=== PATIENT | male | born 1950 | race Caucasian/White ===

== ENCOUNTER → 2017-09-17 | Outpatient (CLI) | payer MEDICARE, OTHER ==
[2015-09-04 10:00] VITALS: BP 150/87
[~2017-09-17] MED LIST: ALLEGRA180 MG PO; ASPIRIN E.C. 8181 M1 PO; CIALIS20 MG PO; FLONASE0.05 MG/AC NS; IBUPROFEN800 MG PO; LOVASTATIN40 MG PO; PRILOSEC 20MG20 MG PO
[2017-09-17 08:50] LABS: HEMOGLOBIN 12.4 g/dL (13.5-18.0); MEAN CELL VOLUME 85 fl (78-100); MEAN CORPUSCULAR HEMOGLOBIN 27 pg (27-31); MEAN CORPUSCULAR HGB CONC 32 g/dL (33-37); MEAN PLATELET VOLUME 10.3 fl (7.4-10.4); PLATELET COUNT 225 K/mm3 (130-400); RED CELL DISTRIBUTION WIDTH 14.9 % (11.5-14.5); WHITE BLOOD COUNT 4.7 K/mm3 (4.8-10.8)
[2017-09-17 08:56] LABS: ALBUMIN 4.2 g/dL (3.5-5.0); BUN/CREATININE RATIO 21.4 (6.0-26.0); CALCIUM 9.4 mg/dL (8.4-10.2); POTASSIUM 3.9 mmol/L (3.6-5.0); TOTAL BILIRUBIN 0.7 mg/dL (0.2-1.3); TOTAL PROTEIN 7.3 g/dL (6.3-8.2)
[2017-09-17 10:07] LABS: ERYTHROCYTE SEDIMENTATION RATE 3 mm/hr (0-20)
[2017-09-17 11:14] LABS: URINE APPEARANCE CLEAR; URINE BILIRUBIN NEGATIVE (NEGATIVE); URINE BLOOD NEGATIVE (NEGATIVE); URINE COLOR YELLOW; URINE GLUCOSE NEGATIVE (NEGATIVE); URINE KETONE NEGATIVE (NEGATIVE); URINE LEUKOCYTE ESTERASE NEGATIVE (NEGATIVE); URINE MUCUS PRESENT (NOT PRESENT); URINE NITRATE NEGATIVE (NEGATIVE); URINE PROTEIN(semi-quant) TRACE mg/dL (NEGATIVE); URINE UROBILINOGEN NORMAL (NORMAL); URINE WBC 0-1 /hpf (0-3)
[2017-09-18 00:11] LABS: TESTOSTERONE 764 ng/dL (221-716)
== END ==
LOC: LAB 08:20
PROVIDERS: Internal Medicine
DX: G43.709 Chronic migraine without aura, not intractable, without status migrainosus (principal); Z12.5 Encounter for screening for malignant neoplasm of prostate; E78.5 Hyperlipidemia, unspecified; N52.9 Male erectile dysfunction, unspecified; Z12.11 Encounter for screening for malignant neoplasm of colon; E53.8 Deficiency of other specified B group vitamins; Z88.0 Allergy status to penicillin

== ENCOUNTER → 2018-10-21 | Outpatient (CLI) | payer MEDICARE, OTHER ==
[2015-09-04 10:00] VITALS: BP 150/87
[2018-10-21 11:49] LABS: EOS # 0.3 (0.04-0.40); LYMPH# 1.2 (1.50-4.00); MEAN CELL VOLUME 86 fl (78-100); MEAN CORPUSCULAR HEMOGLOBIN 28 pg (27-31); MEAN CORPUSCULAR HGB CONC 32 g/dL (33-37); MEAN PLATELET VOLUME 9.2 fl (7.4-10.4); MONO # 0.4 (0.20-0.80); NEU # 2.8 (1.40-6.50); PLATELET COUNT 284 K/mm3 (130-400); RED BLOOD COUNT 4.29 M/mm3 (4.20-5.60); RED CELL DISTRIBUTION WIDTH 14.4 % (11.5-14.5); WHITE BLOOD COUNT 4.8 K/mm3 (4.8-10.8)
[2018-10-21 11:58] LABS: EOS % 6.7 % (0.0-4.0)
[2018-10-21 12:02] LABS: ALBUMIN 4.2 g/dL (3.5-5.0); POTASSIUM 3.7 mmol/L (3.6-5.0); TOTAL BILIRUBIN 0.4 mg/dL (0.2-1.3); TOTAL PROTEIN 7.1 g/dL (6.3-8.2)
[2018-10-21 12:42] LABS: URINE APPEARANCE CLEAR; URINE COLOR YELLOW
[2018-10-21 12:43] LABS: URINE BILIRUBIN NEGATIVE (NEGATIVE); URINE BLOOD NEGATIVE (NEGATIVE); URINE GLUCOSE NEGATIVE (NEGATIVE); URINE KETONE NEGATIVE (NEGATIVE); URINE LEUKOCYTE ESTERASE NEGATIVE (NEGATIVE); URINE NITRATE NEGATIVE (NEGATIVE); URINE PROTEIN(semi-quant) TRACE mg/dL (NEGATIVE); URINE UROBILINOGEN NORMAL (NORMAL); URINE WBC 0-1 /hpf (0-3)
[2018-10-21 12:56] LABS: ERYTHROCYTE SEDIMENTATION RATE 7 mm/hr (0-20)
[2018-10-22 04:13] LABS: TESTOSTERONE 681 ng/dL (221-716)
== END ==
LOC: LAB 11:36
PROVIDERS: Internal Medicine
DX: Z12.5 Encounter for screening for malignant neoplasm of prostate (principal); Z12.11 Encounter for screening for malignant neoplasm of colon; G43.909 Migraine, unspecified, not intractable, without status migrainosus; E53.8 Deficiency of other specified B group vitamins; N52.9 Male erectile dysfunction, unspecified; E78.5 Hyperlipidemia, unspecified

== ENCOUNTER → 2018-10-29 | Outpatient (CLI) | payer MEDICARE, OTHER ==
[2015-09-04 10:00] VITALS: BP 150/87
== END ==
LOC: RAD 09:35
DX: M50.321 Other cervical disc degeneration at C4-C5 level (principal)

== ENCOUNTER → 2018-11-02 | Outpatient (CLI) | payer MEDICARE, OTHER ==
[2015-09-04 10:00] VITALS: BP 150/87
== END ==
LOC: RAD 12:06
DX: M47.812 Spondylosis without myelopathy or radiculopathy, cervical region (principal); M48.02 Spinal stenosis, cervical region; M50.221 Other cervical disc displacement at C4-C5 level

== ENCOUNTER → 2019-10-22 | Outpatient (CLI) | payer MEDICARE, OTHER ==
[2015-09-04 10:00] VITALS: BP 150/87
[2019-10-22 09:20] LABS: HEMATOCRIT 36.2 % (42.0-52.0); HEMOGLOBIN 11.5 g/dL (13.5-18.0); MEAN CELL VOLUME 85 fl (78-100); MEAN CORPUSCULAR HEMOGLOBIN 27 pg (27-31); MEAN CORPUSCULAR HGB CONC 32 g/dL (33-37); PLATELET COUNT 244 K/mm3 (130-400); RED BLOOD COUNT 4.25 M/mm3 (4.20-5.60); RED CELL DISTRIBUTION WIDTH 15.4 % (11.5-14.5)
[2019-10-22 09:24] LABS: ALBUMIN 4.1 g/dL (3.4-4.8); POTASSIUM 4.6 mmol/L (3.5-5.1)
[2019-10-22 09:25] LABS: CALCIUM 9.2 mg/dL (8.3-10.5)
[2019-10-22 09:26] LABS: URINE APPEARANCE CLEAR; URINE BILIRUBIN NEGATIVE (NEGATIVE); URINE BLOOD NEGATIVE (NEGATIVE); URINE COLOR YELLOW; URINE GLUCOSE NEGATIVE (NEGATIVE); URINE KETONE NEGATIVE (NEGATIVE); URINE LEUKOCYTE ESTERASE NEGATIVE (NEGATIVE); URINE NITRATE NEGATIVE (NEGATIVE); URINE PROTEIN(semi-quant) 1+ mg/dL (NEGATIVE); URINE UROBILINOGEN NORMAL (NORMAL); URINE WBC 0-1 /hpf (0-3)
[2019-10-22 09:27] LABS: TOTAL PROTEIN 6.6 g/dL (6.2-8.1)
[2019-10-22 09:29] LABS: TOTAL BILIRUBIN 0.5 mg/dL (0.2-1.2)
[2019-10-22 09:52] LABS: LYMPHOCYTE 21 % (20-51); MONOCYTE 17 % (3-10); NEUTROPHILS 53 % (42-75); OVALOCYTES 1+
[2019-10-22 23:08] LABS: TESTOSTERONE 632 ng/dL (221-716)
[2019-10-25 13:27] LABS: ERYTHROCYTE SEDIMENTATION RATE 7 mm/hr (0-20)
== END ==
LOC: LAB 08:43
PROVIDERS: Internal Medicine
DX: Z12.5 Encounter for screening for malignant neoplasm of prostate (principal); Z12.11 Encounter for screening for malignant neoplasm of colon; N52.03 Combined arterial insufficiency and corporo-venous occlusive erectile dysfunction; G43.709 Chronic migraine without aura, not intractable, without status migrainosus; E78.2 Mixed hyperlipidemia; E53.8 Deficiency of other specified B group vitamins

== ENCOUNTER → 2020-10-23 | Outpatient (CLI) | payer MEDICARE, OTHER ==
[2015-09-04 10:00] VITALS: BP 150/87
[2020-10-23 09:57] LABS: POTASSIUM 4.4 mmol/L (3.5-5.1)
[2020-10-23 09:59] LABS: CALCIUM 8.7 mg/dL (8.3-10.5)
[2020-10-23 10:00] LABS: TOTAL PROTEIN 6.7 g/dL (6.2-8.1)
[2020-10-23 10:02] LABS: TOTAL BILIRUBIN 0.5 mg/dL (0.2-1.2)
[2020-10-23 11:10] LABS: HEMATOCRIT 36.7 % (42.0-52.0); HEMOGLOBIN 11.3 g/dL (13.5-18.0); MEAN CELL VOLUME 88 fl (78-100); MEAN CORPUSCULAR HEMOGLOBIN 27 pg (27-31); MEAN CORPUSCULAR HGB CONC 31 g/dL (33-37); MEAN PLATELET VOLUME 10.5 fl (7.4-10.4); PLATELET COUNT 212 K/mm3 (130-400); RED BLOOD COUNT 4.16 M/mm3 (4.20-5.60); RED CELL DISTRIBUTION WIDTH 15.2 % (11.5-14.5); WHITE BLOOD COUNT 5.3 K/mm3 (4.8-10.8)
[2020-10-23 12:06] LABS: ERYTHROCYTE SEDIMENTATION RATE 4 mm/hr (0-20); LYMPHOCYTE 39 % (20-51); MONOCYTE 12 % (3-10); NEUTROPHILS 45 % (42-75); OVALOCYTES 2+
== END ==
LOC: LAB 09:21
PROVIDERS: Internal Medicine
DX: Z12.5 Encounter for screening for malignant neoplasm of prostate (principal); E78.2 Mixed hyperlipidemia; K90.9 Intestinal malabsorption, unspecified; G43.009 Migraine without aura, not intractable, without status migrainosus

== ENCOUNTER → 2020-10-26 | Outpatient (CLI) | payer MEDICARE, OTHER ==
[2015-09-04 10:00] VITALS: BP 150/87
== END ==
LOC: LAB 12:13
DX: Z12.11 Encounter for screening for malignant neoplasm of colon (principal)

== ENCOUNTER → 2021-11-02 | Outpatient (CLI) | payer MEDICARE, OTHER ==
[2021-11-02 09:01] LABS: BASO # 0.04 K/mm3 (0.02-0.10); EOS # 0.35 K/mm3 (0.04-0.40); EOS % 6.6 % (0.0-4.0); HEMATOCRIT 39.3 % (42.0-52.0); HEMOGLOBIN 12.4 g/dL (13.5-18.0); MEAN CELL VOLUME 89 fl (78-100); MEAN CORPUSCULAR HEMOGLOBIN 28 pg (27-31); MEAN CORPUSCULAR HGB CONC 32 g/dL (33-37); MEAN PLATELET VOLUME 9.9 fl (7.4-10.4); MONO # 0.71 K/mm3 (0.20-0.80); NEU # 2.67 K/mm3 (1.40-6.50); PLATELET COUNT 236 K/mm3 (130-400); RED BLOOD COUNT 4.43 M/mm3 (4.20-5.60); RED CELL DISTRIBUTION WIDTH 14.4 % (11.5-14.5); WHITE BLOOD COUNT 5.3 K/mm3 (4.8-10.8)
[2021-11-02 09:05] LABS: ALBUMIN 4.1 g/dL (3.4-4.8); POTASSIUM 4.4 mmol/L (3.5-5.1)
[2021-11-02 09:06] LABS: CALCIUM 9.3 mg/dL (8.3-10.5)
[2021-11-02 09:08] LABS: TOTAL PROTEIN 6.9 g/dL (6.2-8.1)
[2021-11-02 09:10] LABS: TOTAL BILIRUBIN 0.4 mg/dL (0.2-1.2)
[2021-11-02 10:39] LABS: ERYTHROCYTE SEDIMENTATION RATE 6 mm/hr (0-20)
== END ==
LOC: LAB 08:16
PROVIDERS: Internal Medicine
DX: Z12.11 Encounter for screening for malignant neoplasm of colon (principal); Z12.5 Encounter for screening for malignant neoplasm of prostate; E78.2 Mixed hyperlipidemia; K90.9 Intestinal malabsorption, unspecified

== ENCOUNTER → 2021-11-15 | Outpatient (CLI) | payer MEDICARE, OTHER | LOC: LAB 09:56 | DX: Z12.11 Encounter for screening for malignant neoplasm of colon (principal); Z23 Encounter for immunization; Z12.5 Encounter for screening for malignant neoplasm of prostate; M47.812 Spondylosis without myelopathy or radiculopathy, cervical region; E53.8 Deficiency of other specified B group vitamins; K21.9 Gastro-esophageal reflux disease without esophagitis; K90.9 Intestinal malabsorption, unspecified; E78.2 Mixed hyperlipidemia; I34.0 Nonrheumatic mitral (valve) insufficiency; M17.9 Osteoarthritis of knee, unspecified; N52.9 Male erectile dysfunction, unspecified; Z83.49 Family history of other endocrine, nutritional and metabolic diseases ==

== ENCOUNTER → 2021-11-23 | Outpatient (CLI) | payer MEDICARE, OTHER | LOC: RAD 07:41 | DX: D71 Functional disorders of polymorphonuclear neutrophils (principal); E88.01 Alpha-1-antitrypsin deficiency; R91.8 Other nonspecific abnormal finding of lung field; K80.20 Calculus of gallbladder without cholecystitis without obstruction; K44.9 Diaphragmatic hernia without obstruction or gangrene | CPT/HCPCS: Q9967 ==

== ENCOUNTER → 2022-12-18 | Outpatient (CLI) | payer MEDICARE, OTHER ==
[2022-12-18 07:59] LABS: BASO # 0.03 K/mm3 (0.02-0.10); EOS # 0.43 K/mm3 (0.04-0.40); EOS % 8.5 % (0.0-4.0); HEMATOCRIT 42.1 % (42.0-52.0); HEMOGLOBIN 13.6 g/dL (13.5-18.0); LYMPH# 1.45 K/mm3 (1.50-4.00); MEAN CELL VOLUME 89 fl (78-100); MEAN CORPUSCULAR HEMOGLOBIN 29 pg (27-31); MEAN CORPUSCULAR HGB CONC 32 g/dL (33-37); MEAN PLATELET VOLUME 9.6 fl (7.4-10.4); NEU # 2.55 K/mm3 (1.40-6.50); PLATELET COUNT 200 K/mm3 (130-400); RED BLOOD COUNT 4.73 M/mm3 (4.20-5.60); RED CELL DISTRIBUTION WIDTH 13.9 % (11.5-14.5); WHITE BLOOD COUNT 5.1 K/mm3 (4.8-10.8)
[2022-12-18 08:04] LABS: ALBUMIN 4.2 g/dL (3.4-4.8); POTASSIUM 4.5 mmol/L (3.5-5.1)
[2022-12-18 08:05] LABS: CALCIUM 9.2 mg/dL (8.3-10.5)
[2022-12-18 08:06] LABS: TOTAL PROTEIN 6.7 g/dL (6.2-8.1)
[2022-12-18 08:08] LABS: TOTAL BILIRUBIN 0.4 mg/dL (0.2-1.2)
[2022-12-18 08:14] LABS: MAGNESIUM 2.04 mg/dL (1.60-2.60)
[2022-12-18 09:02] LABS: ERYTHROCYTE SEDIMENTATION RATE 3 mm/hr (0-20)
== END ==
LOC: LAB 07:43
PROVIDERS: Internal Medicine
DX: Z12.5 Encounter for screening for malignant neoplasm of prostate (principal); Z12.11 Encounter for screening for malignant neoplasm of colon; M47.812 Spondylosis without myelopathy or radiculopathy, cervical region; E53.8 Deficiency of other specified B group vitamins; K21.9 Gastro-esophageal reflux disease without esophagitis; E78.2 Mixed hyperlipidemia; K90.9 Intestinal malabsorption, unspecified